=== PATIENT | male | born 1940 | race Caucasian/White ===

== ENCOUNTER 2017-08-29 14:59 | Emergency (ER) | payer OTHER, BC ==
[2017-08-29 15:03] VITALS: BP 94/59; BMI 24.3
--- NOTE | 2017-08-29 15:44 | DR.LACERAT ---
HPI - Time Seen Time seen: 15:41 - Primary Care Physician Primary Care Physician: CAROLYN - Complaints Chief Complaint Doctors Comments: I agree with statement as writted. Slipped from 2nd step from bottom while pressure washing house and fell to ground, rolled on gravel Chief Complaint:: PT. STATES HE WAS PRESSURE WASHING THE [place] AND FELL OFF OF A LADDER, LANDING ON CONCRETE. SKIN TEAR NOTED TO RIGHT FOREARM AND SMALL LACERATION NOTED TO RIGHT ELBOW. - Source History Provided: Patient - Mode of Arrival Mode of Arrival: Ambulatory - Timing Onset of Chief Complaint: 08/29/17 PMH - PMH Past Medical History: Yes Past Medical History: Diabetes, Dyslipidemia, Hypertension, Hypothyroidism Past Surgical History: Yes Surgical History: Lithotripsy, Other - Family History History of Family Medical Conditions: Yes Family Medical History: Diabetes Mellitus, Coronary Artery Disease, Hypertension - Social History Does patient currently use any type of tobacco product: No Have you used tobacco products in the last 12 months: No Type of Tobacco Use: None Does any household member use tobacco: No Alcohol Use: None Do you use any recreational Drugs:: No Lives With: Spouse Lives Where: Home - infectious screening In the last 2 months have you had wt loss of >10#?: NO Have you had fever, night sweats or hemotysis?: No Have you traveled outside the country in the last 6 months?: No Isolation: Standard ROS - Review of Systems Eyes: No Symptoms Reported ENTM: No Symptoms Reported Respiratoy: No Symptoms Reported Cardiovascular: No Symptoms Reported Gastrointestinal/Abdominal: No Symptoms Reported Genitourinary: No Symptoms Reported Neurological: No Symptoms Reported Musculoskeletal: No Symptoms Reported, Elbow (right elbow abrasion) Integumentary: No Symptoms Reported Hematologic/Lymphatic: No Symptoms Reported Endocrine: No Symptoms Reported Psychiatric: No Symptoms Reported All Other Systems: Reviewed and Negative PE - Vital Signs Vitals: Temperature 97.9 F Pulse Rate 101 Respiratory Rate 17 Blood Pressure 94/59 O2 Sat by Pulse Oximetry 96 - General General Appearance: Alert, In No Apparent Distress - Head Head Exam: Normal Inspection, Atraumatic - Eyes Eye exam: EOMI - ENT ENT Exam: Normal Exam - Neck Neck Exam: Normal Inspection, Full ROM - Chest Chest Inspection: Normal Inspection - Respiratory Respiratory Exam: Normal Lung Sounds Bilat Respiratory Exam: Bilateral Clear to Auscultation - Cardiovascular Cardiovascular Exam: Regular Rate, Normal Rhythm - Abdominal Exam Abdominal Exam: Normal Inspection Abdominal Tenderness: negative: RUQ, RLQ, LUQ, LLQ, Epigastrium, Suprapubic, Diffuse, Mild, Moderate, Severe, Other - Extremities Extremities Exam: Normal Inspection, Full ROM - Back Back Exam: Normal Inspection - Neurologic Neurological Exam: Alert, Oriented X3, CN II-XII Intact - Psychiatric Psychiatric Exam: Normal Affect, Normal Mood - Skin Skin Exam: Warm, Dry, Other (abrasion of right elbow with skin avulsion .) Type of Lesion: Rash, Abscess Distribution: Generalized - Diagnosis Discharge Problem: Abrasion of right elbow Qualifiers: Encounter type: initial encounter Qualified Code(s): S50.311A - Abrasion of right elbow, initial encounter - Discharge Plan Condition: Stable - Follow ups/Referrals Follow ups/Referrals: JOHANN LEON [Primary Care Provider] - 3 days - Instructions
[2017-08-29] MEDS ORDERED: ADACEL TDaP IM ONE ×2 (15:51→15:53)
== END 2017-08-29 15:59 | disposition home or self-care (01) ==
LOC: ER 15:06
DX: S50.311A Abrasion of right elbow, initial encounter (principal); W11.XXXA Fall on and from ladder, initial encounter; Y92.9 Unspecified place or not applicable
CPT/HCPCS: 90471; 99282